=== PATIENT | female | born 1970 | race Caucasian/White ===

== ENCOUNTER 2016-02-28 09:40 | Emergency (ER) | payer BC ==
[2016-02-28 09:56] VITALS: BP 127/76
--- NOTE | 2016-02-28 10:07 | UC ---
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 denies fever, numbness tingling in extremities - History of Current Complaint Chief Complaint: UCUpperExtremity Stated Complaint: LEFTSIDE RIB INJURY Time Seen by Provider: 02/28/16 10:01 Hx Obtained From: Patient Onset/Duration: Sudden Onset, Lasting Hours, Still Present Onset Severity: Mild Current Severity: Mild - Allergy/Home Medications Allergies/Adverse Reactions: Allergies Allergy/AdvReac Type Severity Reaction Status Date / Time Sulfa Drugs Allergy Intermediate Swelling Verified 02/28/16 09:50 PMH/Surg Hx/FS Hx/Imm Hx Previously Healthy: Yes Endocrine History Of: Denies: Diabetes, Thyroid Disease Cardiovascular History Of: Denies: Cardiac Disorders, Hypertension Respiratory History Of: Reports: Asthma Denies: COPD - Surgical History Surgical History: Yes Surgery Procedure, Year, and Place: Uterine Ablation, 2013, [place]; Spleenectomy (Cyst), 1990, [facility] - Family History Known Family History: Positive: Respiratory Disease - asthma- brother Negative: Hypertension, Diabetes - Social History Occupation: Employed Full-time Alcohol Use: Daily Substance Use Type: None Smoking Status (MU): Never Smoked Tobacco - Immunization History Most Recent Influenza Vaccination: November 2015 Review of Systems Constitutional: Negative Skin: Negative Eyes: Negative ENT: Negative Respiratory: Negative Cardiovascular: Negative Gastrointestinal: Negative Genitourinary: Negative Motor: Negative Neurovascular: Negative Musculoskeletal: Other: - left upper back pain Neurological: Negative Psychological: Negative All Other Systems Reviewed And Are Negative: Yes Physical Exam Triage Information Reviewed: Yes Appearance: No Pain Distress, Well-Nourished Vital Signs: Initial Vital Signs Temp 98.6 F 02/28/16 09:48 Pulse 90 02/28/16 09:48 Resp 18 02/28/16 09:48 BP 127/76 02/28/16 09:48 Pulse Ox 99 02/28/16 09:48 Vital Signs Reviewed: Yes Eyes: Positive: Conjunctiva Clear ENT: Positive: Pharynx normal, TMs normal. Negative: Nasal congestion Neck: Positive: Supple, No Lymphadenopathy Respiratory: Positive: Lungs clear, Normal breath sounds, No respiratory distress Cardiovascular: Positive: RRR, No Murmur, Pulses Normal Abdomen Description: Positive: Nontender, Soft Bowel Sounds: Positive: Present Musculoskeletal: Positive: Other: - upper left back - non tender throughout spine- no defomrities, edema, ecchymosis, eryhtmea full ROM no tenderness throut musculature of Left upper back pain elicited with twisting to the left only Neurological: Positive: Alert, Other: - DTR intact Psychological Exam: Normal Skin Exam: Normal Skin: Positive: Other - left side of back biopsy removal scar Course/Dx - Course Course Of Treatment: exam completed. pain appears to be muscular. no indication for x-ray at this time. plan is to treat for muscle sprain with muscle relaxer and NSAIDS, if no improvement followup up with PCP in 2-3 days. - Differential Dx - Multi-Symptom Provider Diagnoses: back pain,muscle strain Discharge - Discharge Plan Condition: Stable Disposition: HOME Prescriptions: Cyclobenzaprine TAB* [Flexeril TAB*] 10 mg PO BID PRN #10 tab PRN Reason: Spasms - Muscle Ibuprofen TAB* [Motrin TAB* 800 MG] 800 mg PO ONCE #30 tab Patient Education Materials: Muscle Strain (ED) Referrals: John Ruggiero MD [Primary Care Provider] - Additional Instructions: Take flexeril as directed. Do not drink, drive or operate heavy machinery while on flexeril. Take ibuprofen to reduce pain and inflammation Increase fluids and rest. Please review your discharge instructions. If your symptoms do not improve please call your primary care provider or return to urgent care.
== END 2016-02-28 10:21 | disposition home or self-care (01) ==
LOC: UCCORT 09:40
DX: S29.012A Strain of muscle and tendon of back wall of thorax, initial encounter (principal); X58.XXXA Exposure to other specified factors, initial encounter; Y92.9 Unspecified place or not applicable; Z88.2 Allergy status to sulfonamides; J45.909 Unspecified asthma, uncomplicated; M54.9 Dorsalgia, unspecified
CPT/HCPCS: 99212; G0463

== ENCOUNTER 2016-06-21 07:39 | Emergency (ER) | payer BC ==
[2016-06-21] MEDS ORDERED: Albuterol 2.5 MG/3 ML NEB.SOL* (0.083%) INH ONE (07:51)
--- NOTE | 2016-06-21 08:09 | UC ---
Respiratory Complaint HPI - HPI Summary HPI Summary: CHEST CONGESTION / COUGH X 4 DAYS , NO FEVER, NO CHILLS, + WHEEZING , + SOB - History of Current Complaint Chief Complaint: UCRespiratory Stated Complaint: COUGH,CONGESTION,EAR PAIN Time Seen by Provider: 06/21/16 07:44 Hx Obtained From: Patient Hx Last Menstrual Period: had ablasion 3 years ago Onset/Duration: Gradual Onset, Lasting Days - 4, Still Present Timing: Constant Severity Initially: Moderate Severity Currently: Moderate Character: Cough: Nonproductive Aggravating Factors: Deep Breaths Associated Signs And Symptoms: Positive: Dyspnea, Wheezing, URI, Nasal Congestion. Negative: Fever, Chills, Pleuritic Chest Pain, Calf Pain, Sinus Discomfort - Allergies/Home Medications Allergies/Adverse Reactions: Allergies Allergy/AdvReac Type Severity Reaction Status Date / Time Sulfa Drugs Allergy Intermediate Swelling Verified 06/21/16 07:46 PMH/Surg Hx/FS Hx/Imm Hx Endocrine History Of: Denies: Diabetes, Thyroid Disease Cardiovascular History Of: Denies: Cardiac Disorders, Hypertension Respiratory History Of: Reports: Asthma Denies: COPD - Surgical History Surgical History: Yes Surgery Procedure, Year, and Place: Uterine Ablation, 2013, [place]; Spleenectomy (Cyst), 1990, [facility] - Family History Known Family History: Positive: Respiratory Disease - asthma- brother Negative: Hypertension, Diabetes - Social History Alcohol Use: Weekly Substance Use Type: None Smoking Status (MU): Never Smoked Tobacco - Immunization History Most Recent Influenza Vaccination: November 2015 Review of Systems Constitutional: Negative Skin: Negative Eyes: Negative ENT: Nasal Discharge Respiratory: Shortness Of Breath, Cough Cardiovascular: Negative Gastrointestinal: Negative Genitourinary: Negative All Other Systems Reviewed And Are Negative: Yes Physical Exam Triage Information Reviewed: Yes Appearance: Well-Appearing, No Pain Distress, Well-Nourished Vital Signs: Initial Vital Signs Temp 99.3 F 06/21/16 07:42 Pulse 77 06/21/16 07:42 Resp 14 06/21/16 07:42 BP 124/81 06/21/16 07:42 Pulse Ox 98 06/21/16 07:42 Eye Exam: Normal Eyes: Positive: Conjunctiva Clear ENT: Positive: Normal ENT inspection, Hearing grossly normal, Pharynx normal Neck exam: Normal Neck: Positive: Supple, Nontender, No Lymphadenopathy Respiratory: Positive: Chest non-tender, Lungs clear, Wheezing Cardiovascular: Positive: RRR, No Murmur, Pulses Normal Abdominal Exam: Normal Skin Exam: Normal UC Diagnostic Evaluation - Laboratory O2 Sat by Pulse Oximetry: 98 Respiratory Course/Dx - Differential Dx/Diagnosis Provider Diagnoses: BRONCHITIS Discharge - Discharge Plan Condition: Stable Disposition: HOME Prescriptions: Benzonatate CAP* [Tessalon 100 MG CAP*] 100 mg PO TID #21 cap predniSONE TAB* [Deltasone TAB*] 40 mg PO DAILY #10 tab
[2016-06-21 08:15] VITALS: BP 124/81
== END 2016-06-21 08:20 | disposition home or self-care (01) ==
LOC: UCCORT 07:39
DX: J40 Bronchitis, not specified as acute or chronic (principal); Z88.2 Allergy status to sulfonamides; Z90.81 Acquired absence of spleen
CPT/HCPCS: 99212; G0463

== ENCOUNTER 2016-06-23 14:45 | Emergency (ER) | payer BC ==
[2016-06-23 15:45] VITALS: BP 121/79
--- NOTE | 2016-06-23 16:13 | UC ---
Respiratory Complaint HPI - HPI Summary HPI Summary: seen 3 days ago and rx prednisone and tessalon---feels like cough is getting worse. 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 - History of Current Complaint Chief Complaint: UCRespiratory Stated Complaint: RE-CHECK RESPIRATORY Time Seen by Provider: 06/23/16 16:07 Hx Obtained From: Patient Hx Last Menstrual Period: s/p Uterine Ablation 2013 ?: No Onset/Duration: Sudden Onset - 5-7 days ago Timing: Constant Severity Initially: Mild Severity Currently: Moderate Character: Cough: Nonproductive Aggravating Factors: Allergens, Exertion Alleviating Factors: Bronchodilator - using albuterol q 2 h Associated Signs And Symptoms: Positive: Chills, Wheezing, Nasal Congestion, Sinus Discomfort - Allergies/Home Medications Allergies/Adverse Reactions: Allergies Allergy/AdvReac Type Severity Reaction Status Date / Time Sulfa Drugs Allergy Intermediate Swelling Verified 06/23/16 15:45 PMH/Surg Hx/FS Hx/Imm Hx Previously Healthy: No Endocrine History Of: Denies: Diabetes, Thyroid Disease Cardiovascular History Of: Denies: Cardiac Disorders, Hypertension Respiratory History Of: Reports: Asthma Denies: COPD - Surgical History Surgical History: Yes Surgery Procedure, Year, and Place: Uterine Ablation, 2013, [place]; Spleenectomy (Cyst), 1990, [facility] - Family History Known Family History: Positive: Respiratory Disease - asthma- brother Negative: Hypertension, Diabetes - Social History Occupation: Employed Full-time - golf pro Lives: With Family Alcohol Use: Daily Substance Use Type: None Smoking Status (MU): Never Smoked Tobacco - Immunization History Most Recent Influenza Vaccination: November 2015 Review of Systems Constitutional: Negative Skin: Negative Eyes: Negative ENT: Nasal Discharge Respiratory: Cough Cardiovascular: Negative Gastrointestinal: Negative Genitourinary: Negative Motor: Negative Neurovascular: Negative Musculoskeletal: Negative Neurological: Negative Psychological: Negative All Other Systems Reviewed And Are Negative: Yes Physical Exam Triage Information Reviewed: Yes Appearance: Well-Appearing, No Pain Distress, Well-Nourished Vital Signs: Initial Vital Signs Temp 97.6 F 06/23/16 15:42 Pulse 74 06/23/16 15:42 Resp 16 06/23/16 15:42 BP 121/79 06/23/16 15:42 Pulse Ox 100 06/23/16 15:42 Vital Signs Reviewed: Yes Eye Exam: Normal Eyes: Positive: Conjunctiva Clear ENT Exam: Normal ENT: Positive: Normal ENT inspection, Hearing grossly normal, Pharynx normal, Nasal congestion, Nasal drainage, TMs normal. Negative: Tonsillar swelling, Tonsillar exudate, Trismus, Muffled/hoarse voice Dental Exam: Normal Neck exam: Normal Neck: Positive: Supple, Nontender, No Lymphadenopathy Respiratory Exam: Normal Respiratory: Positive: Chest non-tender, Lungs clear, Normal breath sounds, No respiratory distress, No accessory muscle use Cardiovascular Exam: Normal Cardiovascular: Positive: RRR, No Murmur, Pulses Normal, Brisk Capillary Refill Musculoskeletal Exam: Normal Musculoskeletal: Positive: Strength Intact, ROM Intact, No Edema Neurological Exam: Normal Neurological: Positive: Alert, Muscle Tone Normal Psychological Exam: Normal Skin Exam: Normal UC Diagnostic Evaluation - Laboratory O2 Sat by Pulse Oximetry: 100 Respiratory Course/Dx - Course Course Of Treatment: restart symbicort, flonase and zyrtec continue prednisone and albuterol, may add antibiodic if sx worsen or fail to improve in 5 days - Differential Dx/Diagnosis Differential Diagnosis/HQI/PQRI: Asthma, Bronchitis, Influenza, Laryngitis, Sinusitis, Tuberculosis Provider Diagnoses: Bronchitis, exacerbation of asthma Discharge - Discharge Plan Condition: Stable Disposition: HOME Prescriptions: Azithromycin TAB* [Zithromax TAB (Z-DEXTER) 250 mg #6 tabs] 2 tab PO SEE INSTRUCTIONS #1 dexter Cetirizine* [ZyrTEC 10 MG TAB*] 10 mg PO DAILY #30 tab Fluticasone NASAL SPRAY 50MCG* [Flonase NASAL SPRAY 50MCG*] 2 spray BOTH NARES DAILY #1 btl Patient Education Materials: Budesonide/Formoterol (By breathing), Acute Cough (ED), Wheezing (ED) Referrals: John Ruggiero MD [Primary Care Provider] - If Needed
== END 2016-06-23 16:37 | disposition home or self-care (01) ==
LOC: UCCORT 14:45
DX: J45.901 Unspecified asthma with (acute) exacerbation (principal); Z88.2 Allergy status to sulfonamides; Z90.81 Acquired absence of spleen
CPT/HCPCS: 99212; G0463

== ENCOUNTER 2016-10-12 15:45 | Emergency (ER) | payer BC ==
[2016-10-12 16:07] VITALS: BP 120/66
--- NOTE | 2016-10-12 16:22 | UC ---
Palpitation/Dysrhythmia HP - HPI Summary HPI Summary: 46 yo female states she had an incredibly stress day at work yesterday She was all worked up and yesterday evening her heart was beating much more forcibly and faster than normal. It stayed that way until bedtime. When see awoke she noted skipped beats no CP no SOB no near syncope Had a migraine late morning that lasted 30 minutes and resolved completely no n/v/d no wt loss no recent illness had a mocha and iced tea today - History of Current Complaint Chief Complaint: UCCardiac Stated Complaint: IRREGULAR HEARTBEAT Time Seen by Provider: 10/12/16 16:05 Hx Obtained From: Patient Hx Last Menstrual Period: s/p Uterine Ablation 2013 Onset/Duration: Sudden Onset, Lasting Hours Timing: Constant Severity Initially: Mild Severity Currently: Mild Pain Intensity: 1 - annoying Pain Scale Used: 0-10 Numeric Character: Skipped Beats Aggravating Factor(s): Nothing Associated Signs & Symptoms: Negative: Lightheadedness, Dizzy, Syncope, Chest Pain, Shortness of Breath, Diaphoresis, Nausea, Vomiting - Allergy/Home Medications Allergies/Adverse Reactions: Allergies Allergy/AdvReac Type Severity Reaction Status Date / Time Sulfa Drugs Allergy Intermediate Swelling Verified 10/12/16 15:58 Home Medications: Home Medications NK [No Home Medications Reported] 10/12/16 [History Confirmed 10/12/16] PMH/Surg Hx/FS Hx/Imm Hx Previously Healthy: Yes - Surgical History Surgical History: Yes Surgery Procedure, Year, and Place: Uterine Ablation, 2013, [place]; Spleenectomy (Cyst), 1990, [facility] - Family History Known Family History: Positive: Respiratory Disease - asthma- brother, Other - strong FH AF Negative: Hypertension, Diabetes - Social History Alcohol Use: Daily Alcohol Amount: glass wine/day Substance Use Type: None Smoking Status (MU): Never Smoked Tobacco - Immunization History Most Recent Influenza Vaccination: November 2015 Review of Systems Constitutional: Negative Skin: Negative Eyes: Negative ENT: Negative Respiratory: Negative Cardiovascular: Palpitations Gastrointestinal: Negative Genitourinary: Negative Motor: Negative Neurovascular: Negative Musculoskeletal: Negative Neurological: Negative Psychological: Negative All Other Systems Reviewed And Are Negative: Yes Physical Exam Triage Information Reviewed: Yes Appearance: Well-Appearing, No Pain Distress, Well-Nourished Vital Signs: Initial Vital Signs Temp 97.9 F 10/12/16 15:59 Pulse 87 10/12/16 15:59 Resp 20 10/12/16 15:59 BP 120/66 10/12/16 15:59 Pulse Ox 100 10/12/16 15:59 Vital Signs Reviewed: Yes Eye Exam: Normal Eyes: Positive: Conjunctiva Clear ENT: Positive: Normal ENT inspection, Hearing grossly normal. Negative: Pharyngeal erythema, Nasal congestion, Nasal drainage, TMs normal, TM bulging, TM dull, TM red, Tonsillar swelling, Tonsillar exudate, Trismus, Muffled/hoarse voice Dental: Negative: Gross Decay/Caries @, Dental Fracture @, Abscess @ Neck: Positive: Supple, Nontender, No Lymphadenopathy Respiratory: Positive: Lungs clear, Normal breath sounds, No respiratory distress, No accessory muscle use Cardiovascular: Positive: No Murmur, Other: - frequent extrasystoles Abdomen Description: Positive: Nontender, No Organomegaly, Soft Bowel Sounds: Positive: Present Musculoskeletal: Positive: ROM Intact, No Edema Neurological Exam: Normal Neurological: Positive: Alert Psychological Exam: Normal Skin Exam: Normal Diagnostics - EKG Cardiac Rate: NL Cardiac Rhythm: Sinus: Normal, AFib: Normal, Junctional: Normal, LBBB: Normal Ectopy: PVCs - frequent unifocal PVCs Palpitations Course/Dx - Differential Dx/Diagnosis Provider Diagnoses: frequent unifocal PVCs Discharge - Discharge Plan Condition: Stable Disposition: HOME Patient Education Materials: Premature Ventricular Contractions (ED) Referrals: John Ruggiero MD [Primary Care Provider] - 2 Days (recheck in 2-3 days) Additional Instructions: blood work is pending recheck for new or worsening symptoms avoid caffeine your EKG showed FREQUENT UNIFOCAL PVCs
[2016-10-12 20:24] LABS: Hematocrit 39 % (35-47); Hemoglobin 13.1 g/dl (12.0-16.0); Mean Corpuscular HGB Conc 34 g/dl (31-36); Mean Corpuscular Hemoglobin 30 pg (27-31); Mean Corpuscular Volume 88 fL (80-97); Mean Platelet Volume 9 um3 (7.4-10.4); Red Blood Count 4.37 10^6/ul (4.0-5.4); Red Cell Distribution Width 13 % (10.5-15)
[2016-10-12 20:37] LABS: BUN/Creatinine Ratio 14.3 (8-20); Calcium 9.6 mg/dL (8.6-10.3); EGFR African American 72.6 (>60); EGFR Non-African American 56.4 (>60); Potassium 3.8 mmol/L (3.5-5.0)
[2016-10-12 20:44] LABS: TSH (Thyroid Stimulating Horm) 2.76 mcIU/mL (0.34-5.60)
== END 2016-10-12 16:43 | disposition home or self-care (01) ==
LOC: UCCORT 15:45
DX: I49.3 Ventricular premature depolarization (principal); Z88.2 Allergy status to sulfonamides
CPT/HCPCS: 36415; 80048; 84443; 85025; 93005; 99211; G0463

== ENCOUNTER 2017-06-08 14:43 | Emergency (ER) | payer BC ==
[2017-06-08 15:04] VITALS: BP 131/91
--- NOTE | 2017-06-08 15:15 | UC ---
Throat Pain/Nasal Brandon HPI - HPI Summary HPI Summary: Patient here at the urgent care today with chief complaint of sore throat for 12 hours. Denies fevers chills no cough no sinus congestion - History of Current Complaint Chief Complaint: UCRespiratory Stated Complaint: SORE THROAT Time Seen by Provider: 06/08/17 15:00 Hx Obtained From: Patient Hx Last Menstrual Period: 2013, UTERINE ABLATION ?: No Onset/Duration: Sudden Onset, Lasting Hours - 12 Severity: Moderate Pain Intensity: 4 Pain Scale Used: 0-10 Numeric Cough: None Associated Signs & Symptoms: Positive: Negative - Allergies/Home Medications Allergies/Adverse Reactions: Allergies Allergy/AdvReac Type Severity Reaction Status Date / Time Sulfa (Sulfonamide Allergy Unknown Swelling Verified 06/08/17 14:57 Antibiotics) PMH/Surg Hx/FS Hx/Imm Hx Previously Healthy: Yes - Surgical History Surgical History: Yes Surgery Procedure, Year, and Place: Uterine Ablation, 2013, [place]; Spleenectomy (Cyst), 1990, [facility] - Family History Known Family History: Positive: Respiratory Disease - asthma- brother, Other - strong FH AF Negative: Hypertension, Diabetes - Social History Occupation: Employed Full-time Lives: With Family Alcohol Use: Occasionally Alcohol Amount: glass wine/day Substance Use Type: None Smoking Status (MU): Never Smoked Tobacco - Immunization History Most Recent Influenza Vaccination: November 2015 Review of Systems Constitutional: Negative Skin: Negative Eyes: Negative ENT: Sore Throat Respiratory: Negative Cardiovascular: Negative Gastrointestinal: Negative Genitourinary: Negative Motor: Negative Neurovascular: Negative Musculoskeletal: Negative Neurological: Negative Psychological: Negative Is Patient Immunocompromised?: No All Other Systems Reviewed And Are Negative: Yes Physical Exam Triage Information Reviewed: Yes Appearance: Well-Appearing, No Pain Distress, Well-Nourished Vital Signs: Initial Vital Signs Temp 99.3 F 06/08/17 14:58 Pulse 79 06/08/17 14:58 Resp 18 06/08/17 14:58 BP 131/91 06/08/17 14:58 Pulse Ox 98 06/08/17 14:58 Vital Signs Reviewed: Yes Eye Exam: Normal Eyes: Positive: Conjunctiva Clear ENT Exam: Normal ENT: Positive: Normal ENT inspection, Hearing grossly normal, Pharyngeal erythema, TMs normal, Uvula midline. Negative: Nasal congestion, Tonsillar swelling, Tonsillar exudate, Trismus, Muffled voice, Hoarse voice, Dental tenderness, Sinus tenderness Dental Exam: Normal Neck exam: Normal Neck: Positive: Supple, Nontender, No Lymphadenopathy Respiratory Exam: Normal Respiratory: Positive: Chest non-tender, Lungs clear, Normal breath sounds, No respiratory distress, No accessory muscle use Cardiovascular Exam: Normal Cardiovascular: Positive: RRR, No Murmur, Pulses Normal, Brisk Capillary Refill Musculoskeletal Exam: Normal Musculoskeletal: Positive: Strength Intact, ROM Intact, No Edema Neurological Exam: Normal Neurological: Positive: Alert, Muscle Tone Normal Psychological Exam: Normal Skin Exam: Normal - Provider Diagnostics - Laboratory Diagnostic Studies Completed/Ordered: RST (-) Throat Pain/Nasal Course/Dx - Course Assessment/Plan: Tylenol ibuprofen for pain. [id number] cold medications for symptom relief. Increase fluids follow with PCP when necessary - Differential Dx/Diagnosis Provider Diagnoses: Viral illness-pharyngitis Discharge - Sign-Out/Discharge Documenting (check all that apply): Discharge - Discharge Plan Condition: Stable Disposition: HOME Patient Education Materials: Upper Respiratory Infection (DC), Viral Syndrome ( ED) Referrals: John Ruggiero MD [Primary Care Provider] - If Needed - Billing Disposition and Condition Condition: STABLE Disposition: HOME
== END 2017-06-08 15:26 | disposition home or self-care (01) ==
LOC: UCCORT 14:43
DX: B34.9 Viral infection, unspecified (principal); J02.0 Streptococcal pharyngitis; Z88.1 Allergy status to other antibiotic agents
CPT/HCPCS: 87651; 99211; G0463

== ENCOUNTER 2017-08-28 12:33 | Emergency (ER) | payer BC ==
[2017-08-28 12:55] VITALS: BP 133/90
--- NOTE | 2017-08-28 13:32 | UC ---
Throat Pain/Nasal Brandon HPI - HPI Summary HPI Summary: The patient is a 46-year-old female who presents here with a 3 day history of throat pain. When asked to point where it hurts the most she points to her sternal notch. She has been able to swallow fluids normally. He has had solid food dysphasia. Not had any weight loss. She denies any heartburn or hoarseness. - History of Current Complaint Chief Complaint: UCGeneralIllness Stated Complaint: THROAT COMPLAINT Time Seen by Provider: 08/28/17 12:44 Hx Obtained From: Patient Hx Last Menstrual Period: 2013, UTERINE ABLATION Onset/Duration: Gradual Onset, Lasting Days Severity: Mild Pain Intensity: 4 Pain Scale Used: 0-10 Numeric Cough: None Associated Signs & Symptoms: Positive: Dysphagia - Allergies/Home Medications Allergies/Adverse Reactions: Allergies Allergy/AdvReac Type Severity Reaction Status Date / Time Sulfa (Sulfonamide Allergy Unknown Swelling Verified 08/28/17 12:50 Antibiotics) PMH/Surg Hx/FS Hx/Imm Hx Previously Healthy: Yes - Surgical History Surgical History: Yes Surgery Procedure, Year, and Place: Uterine Ablation, 2013, [place]; Spleenectomy (Cyst), 1990, [facility] - Family History Known Family History: Positive: Respiratory Disease - asthma- brother, Other - strong FH AF Negative: Hypertension, Diabetes - Social History Alcohol Use: Occasionally Alcohol Amount: glass wine/day Substance Use Type: None Smoking Status (MU): Never Smoked Tobacco - Immunization History Most Recent Influenza Vaccination: November 2015 Review of Systems Constitutional: Negative Skin: Negative Eyes: Negative ENT: Sore Throat Respiratory: Negative Cardiovascular: Negative Gastrointestinal: Negative Genitourinary: Negative Motor: Negative Neurovascular: Negative Musculoskeletal: Negative Neurological: Negative Psychological: Negative Is Patient Immunocompromised?: No All Other Systems Reviewed And Are Negative: Yes Physical Exam Triage Information Reviewed: Yes Appearance: Well-Appearing, No Pain Distress, Well-Nourished Vital Signs: Initial Vital Signs Temp 99.8 F 08/28/17 12:50 Pulse 81 08/28/17 12:50 Resp 16 08/28/17 12:50 BP 133/90 08/28/17 12:50 Pulse Ox 98 08/28/17 12:50 Vital Signs Reviewed: Yes Eyes: Positive: Conjunctiva Clear ENT: Positive: Hearing grossly normal, Pharynx normal. Negative: Nasal congestion, Nasal drainage, Trismus, Muffled voice, Hoarse voice Neck: Positive: Supple, Nontender, No Lymphadenopathy, Other: - no thyromegaly Respiratory: Positive: Lungs clear, Normal breath sounds, No respiratory distress, No accessory muscle use Cardiovascular: Positive: RRR, No Murmur Musculoskeletal: Positive: ROM Intact, No Edema Neurological: Positive: Alert Psychological Exam: Normal Skin Exam: Normal Throat Pain/Nasal Course/Dx - Course Assessment/Plan: strep (-) - Differential Dx/Diagnosis Provider Diagnoses: solid food dysphagia Discharge - Sign-Out/Discharge Documenting (check all that apply): Discharge/Admit/Transfer - Discharge Plan Condition: Stable Disposition: HOME Patient Education Materials: Dysphagia (ED) Referrals: John Ruggiero MD [Primary Care Provider] - Jarrell Archer MD [Medical Doctor] - As Soon As Possible (I beleive Dr. Archer has [place] appts. ) Additional Instructions: I suggest you get seen by an ENT specialist call Tuesday to make an appt a thyroid test is pending I suggest you try Prilosec 20 mg daily for up to 2 weeks - Billing Disposition and Condition Condition: STABLE Disposition: Home
== END 2017-08-28 13:45 | disposition home or self-care (01) ==
LOC: UCCORT 12:33
DX: R13.10 Dysphagia, unspecified (principal); Z88.2 Allergy status to sulfonamides
CPT/HCPCS: 36415; 84443; 87651; 99211; G0463

== ENCOUNTER 2018-01-31 07:45 | Emergency (ER) | payer BC ==
[2018-01-31 08:01] VITALS: BP 130/91
--- NOTE | 2018-01-31 08:30 | UC ---
Throat Pain/Nasal Brandon HPI - HPI Summary HPI Summary: sore throat x 1 day no nasal congestion, no cough, no fever, no chills - History of Current Complaint Chief Complaint: UCGeneralIllness Stated Complaint: SORE THROAT Time Seen by Provider: 01/31/18 08:01 Hx Obtained From: Patient Hx Last Menstrual Period: 2013, UTERINE ABLATION ?: No Onset/Duration: Gradual Onset, Lasting Days - 1, Still Present Severity: Moderate Pain Intensity: 7 Cough: None Associated Signs & Symptoms: Positive: Negative - Allergies/Home Medications Allergies/Adverse Reactions: Allergies Allergy/AdvReac Type Severity Reaction Status Date / Time Sulfa (Sulfonamide Allergy Unknown Swelling Verified 01/31/18 07:55 Antibiotics) Home Medications: Home Medications Dm/Acetaminophen/Doxylamine [Night Time Cold-Flu Rlf Sftgl] 1 each PO ONCE 01/31 [History Confirmed 01/31/18] PMH/Surg Hx/FS Hx/Imm Hx Previously Healthy: Yes - Surgical History Surgical History: Yes Surgery Procedure, Year, and Place: Uterine Ablation, 2013, [place]; Spleenectomy (Cyst), 1990, [facility] - Family History Known Family History: Positive: Respiratory Disease - asthma- brother, Other - strong FH AF Negative: Hypertension, Diabetes - Social History Alcohol Use: Occasionally Alcohol Amount: glass wine/day Substance Use Type: None Smoking Status (MU): Never Smoked Tobacco - Immunization History Most Recent Influenza Vaccination: November 2015 Review of Systems All Other Systems Reviewed And Are Negative: Yes Constitutional: Positive: Negative Skin: Positive: Negative Eyes: Positive: Negative ENT: Positive: Sore Throat Respiratory: Positive: Negative Cardiovascular: Positive: Negative Is Patient Immunocompromised?: No Physical Exam Triage Information Reviewed: Yes Appearance: Well-Appearing, No Pain Distress, Well-Nourished Vital Signs: Initial Vital Signs Temp 99.2 F 01/31/18 07:55 Pulse 82 01/31/18 07:55 Resp 15 01/31/18 07:55 BP 130/91 01/31/18 07:55 Pulse Ox 99 01/31/18 07:55 Vital Signs Reviewed: Yes Eye Exam: Normal Eyes: Positive: Conjunctiva Clear ENT: Positive: Normal ENT inspection, Hearing grossly normal, Pharyngeal erythema, TMs normal. Negative: Nasal congestion, Nasal drainage Neck: Positive: Supple, Nontender, No Lymphadenopathy Respiratory: Positive: Chest non-tender, Lungs clear, Normal breath sounds Cardiovascular: Positive: RRR, No Murmur, Pulses Normal Skin Exam: Normal Throat Pain/Nasal Course/Dx - Differential Dx/Diagnosis Provider Diagnosis: Pharyngitis Discharge - Sign-Out/Discharge Documenting (check all that apply): Patient Departure All imaging exams completed and their final reports reviewed: No Studies - Discharge Plan Condition: Stable Disposition: HOME Patient Education Materials: Pharyngitis (ED) Referrals: John Ruggiero MD [Primary Care Provider] - If Needed - Billing Disposition and Condition Condition: STABLE Disposition: Home
== END 2018-01-31 08:35 | disposition home or self-care (01) ==
LOC: UCCORT 07:45
DX: J02.9 Acute pharyngitis, unspecified (principal); Z88.2 Allergy status to sulfonamides
CPT/HCPCS: 87651; 99211; G0463

== ENCOUNTER 2018-04-27 07:01 | Emergency (ER) | payer SELFPAY ==
[2018-04-27] MEDS ORDERED: Phenazopyridine TAB* 100 MG PO ONE (07:37)
[2018-04-27] MEDS ORDERED: Cephalexin CAP* 500 MG PO ONE (07:37)
--- NOTE | 2018-04-27 07:38 | UC ---
Complaint Female HPI - HPI Summary HPI Summary: 47 yo female with dysuria urgency which started about 5 days ago improved then worsened last pm no f/c no n/v no back or abd pain - History Of Current Complaint Chief Complaint: UCGU Stated Complaint: URINARY COMPLAINT Time Seen by Provider: 04/27/18 07:32 Hx Obtained From: Patient Hx Last Menstrual Period: 2013, UTERINE ABLATION Onset/Duration: Gradual Onset, Lasting Days Timing: Intermittent, Lasting Seconds Severity Initially: Mild Severity Currently: None Pain Intensity: 0 - mild when urinating Pain Scale Used: 0-10 Numeric Character: Burning Aggravating Factor(s): Urination Associated Signs And Symptoms: Negative: Fever, Back Pain, Vaginal Bleeding/ Discharge, Vaginal Discharge, Nausea, Vomiting(# Of Episodes =), Genital Swelling, Genital Blisters Related Hx: Similar Episode/Dx as: - UTI - Allergies/Home Medications Allergies/Adverse Reactions: Allergies Allergy/AdvReac Type Severity Reaction Status Date / Time Sulfa (Sulfonamide Allergy Unknown Swelling Verified 04/27/18 07:12 Antibiotics) PMH/Surg Hx/FS Hx/Imm Hx Previously Healthy: Yes - Surgical History Surgical History: Yes Surgery Procedure, Year, and Place: Uterine Ablation, 2013, [place]; Spleenectomy (Cyst), 1990, [facility] - Family History Known Family History: Positive: Cardiac Disease, Hypertension, Diabetes, Respiratory Disease - asthma- brother, Other - strong FH AF - Social History Alcohol Use: Occasionally Alcohol Amount: glass wine/day Substance Use Type: None Smoking Status (MU): Never Smoked Tobacco - Immunization History Most Recent Influenza Vaccination: November 2015 Review of Systems All Other Systems Reviewed And Are Negative: Yes Constitutional: Positive: Negative Skin: Positive: Negative Eyes: Positive: Negative ENT: Positive: Negative Respiratory: Positive: Negative Cardiovascular: Positive: Negative Gastrointestinal: Positive: Negative Genitourinary: Positive: Dysuria, Frequency, Urgency Motor: Positive: Negative Neurovascular: Positive: Negative Musculoskeletal: Positive: Negative Neurological: Positive: Negative Psychological: Positive: Negative Physical Exam Triage Information Reviewed: Yes Appearance: Well-Appearing, No Pain Distress, Well-Nourished Vital Signs: Initial Vital Signs Temp 98.5 F 04/27/18 07:13 Pulse 88 04/27/18 07:13 Resp 16 04/27/18 07:13 BP 136/101 04/27/18 07:13 Pulse Ox 100 04/27/18 07:13 Vital Signs Reviewed: Yes Eyes: Positive: Conjunctiva Clear ENT: Positive: Hearing grossly normal. Negative: Nasal congestion, Nasal drainage, Trismus, Muffled voice, Hoarse voice Neck: Positive: Supple, Nontender, No Lymphadenopathy Respiratory: Positive: Lungs clear, Normal breath sounds, No respiratory distress, No accessory muscle use Cardiovascular: Positive: RRR, No Murmur Abdomen Description: Positive: Nontender, No Organomegaly, Soft. Negative: CVA Tenderness (R), CVA Tenderness (L) Musculoskeletal: Positive: ROM Intact, No Edema Neurological: Positive: Alert Psychological Exam: Normal Skin Exam: Normal Complaint Female Dx - Course Course Of Treatment: UA +++ leuk, ++ pro, + RBC - Differential Dx/Diagnosis Provider Diagnosis: Acute cystitis, Elevated BP without diagnosis of hypertension Discharge - Sign-Out/Discharge Documenting (check all that apply): Patient Departure All imaging exams completed and their final reports reviewed: No Studies - Discharge Plan Condition: Stable Disposition: HOME Prescriptions: Cephalexin CAP* [Keflex CAP*] 500 mg PO BID #10 cap Fluconazole 150 MG (NF) [Diflucan 150 mg (NF)] 150 mg PO ONCE #1 tab Phenazopyridine TAB* [Pyridium TAB*] 100 mg PO TID #6 tab Patient Education Materials: Urinary Tract Infection in Women (ED) Referrals: John Ruggiero MD [Primary Care Provider] - 2 Weeks (recheck in 2-12 weeks for follow up of BP) Additional Instructions: a urine culture is pending take diflucan if you get a vaginal yeast infection recheck for new or worsening symptoms or if not better in 2-3 days - Billing Disposition and Condition Condition: STABLE Disposition: Home
[2018-04-27 07:46] VITALS: BP 134/100
== END 2018-04-27 07:49 | disposition home or self-care (01) ==
LOC: UCCORT 07:01
DX: N30.00 Acute cystitis without hematuria (principal); R03.0 Elevated blood-pressure reading, without diagnosis of hypertension; Z88.0 Allergy status to penicillin
CPT/HCPCS: 81003; 87077; 87086; 87186; 99212; A9270-GY; G0463

== ENCOUNTER 2018-05-26 15:13 | Emergency (ER) | payer BC ==
[2018-05-26 18:53] VITALS: BP 133/90
--- NOTE | 2018-05-26 19:51 | UC ---
UC General HPI - HPI Summary HPI Summary: Per dump truck driver off highway: "sx started early this morning (just back from [facility])-- chills, diarrhea, back pain, nausea but no vomiting -a few other traveler has same sx" -has been very cautious about what she ate and drank. no tap water or ice. [place] not concerned about contamination -no blood in stool. nausea is better. no vomiting. declines zofran -sx started at 2:30 AM. last diarrhea was several hrs ago but feels liek she could go again. hasnt eaten anything. -has had neg w/u for baseline microscopic hematuria. no dysuria. + body aches. has not taken nsaids or apap - History of Current Complaint Chief Complaint: UCGeneralIllness Stated Complaint: FEVER BACK PAIN DIARRHEA Time Seen by Provider: 05/26/18 19:23 Hx Last Menstrual Period: ablation Pain Intensity: 7 - Allergy/Home Medications Allergies/Adverse Reactions: Allergies Allergy/AdvReac Type Severity Reaction Status Date / Time Sulfa (Sulfonamide Allergy Unknown Swelling Verified 05/26/18 18:53 Antibiotics) Home Medications: Home Medications NK [No Home Medications Reported] 05/26/18 [History Confirmed 05/26/18] PMH/Surg Hx/FS Hx/Imm Hx Previously Healthy: Yes - Surgical History Surgical History: Yes Surgery Procedure, Year, and Place: Uterine Ablation, 2013, [place]; Spleenectomy (Cyst), 1990, [facility] - Family History Known Family History: Positive: Cardiac Disease, Hypertension, Diabetes, Respiratory Disease - asthma- brother, Other - strong FH AF - Social History Alcohol Use: Occasionally Alcohol Amount: glass wine/day Substance Use Type: None Smoking Status (MU): Never Smoked Tobacco - Immunization History Most Recent Influenza Vaccination: November 2015 Review of Systems All Other Systems Reviewed And Are Negative: Yes Constitutional: Positive: Chills, Fatigue. Negative: Fever Skin: Positive: Negative Eyes: Positive: Negative ENT: Positive: Negative Respiratory: Positive: Negative Cardiovascular: Positive: Negative Gastrointestinal: Positive: Abdominal Pain - cramping, Diarrhea, Nausea - improved. Negative: Vomiting Genitourinary: Positive: Negative. Negative: Dysuria, Hematuria Motor: Positive: Negative Neurovascular: Positive: Negative Musculoskeletal: Positive: Arthralgia, Myalgia Neurological: Positive: Negative Psychological: Positive: Negative Is Patient Immunocompromised?: No Physical Exam Triage Information Reviewed: Yes Appearance: Ill-Appearing - very pleasant, reliable historian Vital Signs: Initial Vital Signs Temp 99.7 F 05/26/18 18:48 Pulse 92 05/26/18 18:48 Resp 16 05/26/18 18:48 BP 133/90 05/26/18 18:48 Pulse Ox 99 05/26/18 18:48 Eye Exam: Normal Eyes: Positive: Conjunctiva Clear ENT Exam: Normal ENT: Positive: Pharynx normal, TMs normal Dental Exam: Normal Respiratory Exam: Normal Respiratory: Positive: Lungs clear, Normal breath sounds, No respiratory distress, No accessory muscle use. Negative: Crackles, Rhonchi, Stridor, Wheezing Cardiovascular Exam: Normal Cardiovascular: Positive: RRR, No Murmur, Pulses Normal, Brisk Capillary Refill Abdominal Exam: Normal Abdomen Description: Positive: Nontender, Soft. Negative: CVA Tenderness (R), CVA Tenderness (L) Bowel Sounds: Positive: Hyperactive Musculoskeletal Exam: Normal Neurological Exam: Normal Psychological Exam: Normal Skin: Negative: Rashes Course/Dx - Course Course Of Treatment: likely viral gastroenteritis w/ friends with similar symptoms. feeling slightly better. -nsaids/apap for myalgias/arthralgias. -she understood me well and is very agreeable w/ plan. - Differential Dx - Multi-Symptom Differential Diagnoses: Urinary Tract Infection, Other - gastroenteritis - Diagnoses Provider Diagnosis: Gastroenteritis Discharge - Sign-Out/Discharge Documenting (check all that apply): Patient Departure All imaging exams completed and their final reports reviewed: No Studies - Discharge Plan Condition: Stable Disposition: HOME Patient Education Materials: Gastroenteritis (ED) Referrals: John Ruggiero MD [Primary Care Provider] - 5 Days Additional Instructions: -Your symptoms should improve in the next 1-3 days. Make sure you keep yourself hydrated. You should go to the ER if you are unable to hold down any fluids or if your symptoms worsen. You can call for the urine culture in 2 days to be certain. - Billing Disposition and Condition Condition: STABLE Disposition: Home
== END 2018-05-26 20:08 | disposition home or self-care (01) ==
LOC: UCCORT 15:13
DX: K52.9 Noninfective gastroenteritis and colitis, unspecified (principal); Z88.2 Allergy status to sulfonamides
CPT/HCPCS: 81003; 87086; 99211; G0463

== ENCOUNTER 2019-02-17 07:01 | Emergency (ER) | payer BC ==
--- OUTSIDE RECORDS SUMMARY | 2019-02-17 07:16 | XMS REPORT | Continuity of Care Document ---
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 Naeem Varela MD Onset: 05/18/2017 Social History Type Date Description Comments Sex Unknown Tobacco Use Reviewed: 01/10/19 Patient is a non-smoker Smoking Status Reviewed: 01/10/19 Patient is a non-smoker Cigars denies Tobacco Use Start: Unknown End: Unknown denies ETOH Use Currently consumes alcohol 1-2 daily Allergies, Adverse Reactions, Alerts Active Allergies Reaction Severity Comments Date Sulfa swelling 01/28/2012 Medications Active Medications SIG Qnty Indications Ordering Provider Date Proair HFA Unknown 108(90Base) mcg/ac Aerosol Clonazepam prn John Ruggiero MD 1mg Tablets Immunizations Description No Information Available Vital Signs Date Vital Result Comment 01/10/2019 2:38pm Height 67 inches 5'7" Weight 161.00 lb Weight 73.030 kg BMI (Body Mass Index) 25.2 kg/m2 BP Systolic 139 mmHg BP Diastolic 83 mmHg Heart Rate 78 /min 07/05/2018 9:00am Height 67 inches 5'7" Weight 165.00 lb Weight 74.844 kg BMI (Body Mass Index) 25.8 kg/m2 BP Systolic 124 mmHg BP Diastolic 87 mmHg Heart Rate 84 /min Results Test Acquired Date Facility Test Result H/L Range Note 230 Ua Routine 01/10/2019 [facility] Ua Glucose Negative REF TO DR ADDRESS ON ORDER FOR (315)- - Ua Protein Negative Ua Nitrite Negative Ua Leuko Negative Ua Blood Trace-intact Ua Color Not Entered Ua Ketones Negative Ua Clarity Not Entered Ua Specific [place] 1.010 1.003-1.030 Ua PH 5.5 5.0-7.5 Ua Bilirubin Negative Ua Urobilinogen 0.2 E.U./dL 0.0-1.0 Procedures Date Code Description Status 01/10/2019 16104302 Mammogram Completed Medical Devices Description No Information Available Encounters Type Date Location Provider Dx Diagnosis Office Visit 01/10/2019 [facility] Naeem Varela MD R31.21 Asymptomatic 2:40p [place]/ [facility] microscopic Urology hematuria Assessments Date Code Description Provider 01/10/2019 R31.21 Asymptomatic microscopic hematuria Naeem Varela MD Plan of Treatment Future Appointment(s):07/12/2019 8:45 am - Naeem Varela MD at [facility] Qcaeiwu92/20/2019 - Naeem Varela, MDR31.21 Asymptomatic microscopic hematuriaNew Xrays:US Retroperitoneal Complete (Kidneys/Bladder), Scheduled: 06/10Comments:Patient has no complaints with regards to her urination. She is doing very well. The MRI was discussed with her. The plan is to repeat an ultrasound in June 2019. And we will see her a week after.Follow up:To come back in June 1 week after the ultrasound Functional Status Description No Information Available Mental Status Description No Information Available Referrals Description No Information Available
[2019-02-17 07:20] VITALS: BP 118/76
--- NOTE | 2019-02-17 07:31 | UC ---
Throat Pain/Nasal Brandon HPI - HPI Summary HPI Summary: Per survey data technician: "Pt woke up in the middle of the night with very bad sore throat, bilateral ear ache. 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 UTD w/ pneumonia vaccine but unaware that she is supposed to get meningitis vaccine every 5 yrs. -no fever, no stiff neck. -has had strep before. -no cough. no LAD. -no n/v/d/rash. - History of Current Complaint Chief Complaint: UCGeneralIllness Stated Complaint: SORE THROAT Time Seen by Provider: 02/17/19 07:21 Hx Last Menstrual Period: ablation Pain Intensity: 3 - Allergies/Home Medications Allergies/Adverse Reactions: Allergies Allergy/AdvReac Type Severity Reaction Status Date / Time Sulfa (Sulfonamide Allergy Unknown Swelling Verified 02/17/19 07:16 Antibiotics) PMH/Surg Hx/FS Hx/Imm Hx Previously Healthy: Yes Respiratory History: Asthma - Surgical History Surgical History: Yes Surgery Procedure, Year, and Place: Uterine Ablation, 2013, [place]. Spleenectomy (Cyst), 1990, [facility] - Family History Known Family History: Positive: Cardiac Disease, Hypertension, Diabetes, Respiratory Disease - asthma- brother, Other - strong FH AF - Social History Alcohol Use: Occasionally Alcohol Amount: glass wine/day Substance Use Type: None Smoking Status (MU): Never Smoked Tobacco - Immunization History Most Recent Influenza Vaccination: November 2015 Review of Systems All Other Systems Reviewed And Are Negative: Yes Constitutional: Negative: Fever, Chills, Fatigue Skin: Positive: Negative Eyes: Positive: Negative. Negative: Eye Redness, Photophobia ENT: Positive: Sore Throat, Ear Ache. Negative: Nasal Discharge, Sinus Congestion, Sinus Pain/Tenderness Respiratory: Positive: Negative. Negative: Shortness Of Breath, Cough Cardiovascular: Positive: Negative Gastrointestinal: Positive: Negative Genitourinary: Positive: Negative. Negative: Dysuria Motor: Positive: Negative Neurovascular: Positive: Negative Musculoskeletal: Positive: Negative Neurological: Positive: Negative Psychological: Positive: Negative Is Patient Immunocompromised?: No Physical Exam Triage Information Reviewed: Yes Appearance: Well-Appearing, No Pain Distress, Well-Nourished - very pleasant, good historian Vital Signs: Initial Vital Signs Temp 98.3 F 02/17/19 07:16 Pulse 80 12/28/19 07:16 Resp 16 02/17/19 07:16 BP 118/76 02/17/19 07:16 Pulse Ox 99 02/17/19 07:16 Eye Exam: Normal Eyes: Positive: Conjunctiva Clear ENT: Positive: Hearing grossly normal, Pharyngeal erythema - mild, TMs normal, Uvula midline. Negative: Nasal congestion, Nasal drainage, TM bulging, TM dull , TM red, Tonsillar swelling, Tonsillar exudate, Sinus tenderness Dental Exam: Normal Neck exam: Normal Neck: Positive: Supple, Nontender, No Lymphadenopathy Respiratory Exam: Normal Respiratory: Positive: Chest non-tender, Lungs clear, Normal breath sounds, No respiratory distress, No accessory muscle use. Negative: Crackles, Rhonchi, Stridor, Wheezing Cardiovascular Exam: Normal Cardiovascular: Positive: RRR, No Murmur Abdominal Exam: Normal Abdomen Description: Positive: Nontender, Soft. Negative: Distended, Guarding, Hepatomegaly, Splenomegaly Musculoskeletal Exam: Normal Neurological Exam: Normal Psychological Exam: Normal Skin Exam: Normal Throat Pain/Nasal Course/Dx - Course Course Of Treatment: rapid strep neg - ordered based on splenectomy hx. unaware that she should be vaccinated to meningitis Q 5 yrs. has CPE scheduled in 2 days and will bring up , although she should await resolution of illness before vaccine. - Differential Dx/Diagnosis Differential Diagnosis/HQI/PQRI: Laryngitis, Pharyngitis, URI Provider Diagnosis: Pharyngitis Discharge ED - Sign-Out/Discharge Documenting (check all that apply): Patient Departure All imaging exams completed and their final reports reviewed: No Studies - Discharge Plan Condition: Stable Disposition: HOME Patient Education Materials: Pharyngitis (ED) Referrals: John Ruggiero MD [Primary Care Provider] - Additional Instructions: Rapid strep test is negative. -Please make sure to get a meningitis vaccine once you are feeling better. This should be updated every 5 years along with the pneumonia vaccine because of the fact that you no longer have a spleen. -Rest, plenty of fluids and tylenol/ibuprofen for pain. - Billing Disposition and Condition Condition: STABLE Disposition: Home
== END 2019-02-17 07:57 | disposition home or self-care (01) ==
LOC: UCCORT 07:01
DX: J02.9 Acute pharyngitis, unspecified (principal); J45.909 Unspecified asthma, uncomplicated; H92.09 Otalgia, unspecified ear; Z88.2 Allergy status to sulfonamides
CPT/HCPCS: 87651; 99211; G0463